=== PATIENT | male | born 1990 | race Caucasian/White ===

== ENCOUNTER 2024-01-11 09:36 | Outpatient (OUT) | payer MEDICAID, SELFPAY ==
--- NOTE | 2024-01-11 09:46 | XR_ITS ---
The [address] [address] Patient Name: DEBORA TRUJILLO MRN: [id number] date: 1990 Sex: M Assigned Patient Location: [facility] Current Patient Location: Accession/Order Number: [id number] Exam Date: 01/11/2024 09:55 Report Date: 01/12/2024 07:29 At the request of: HENRRY GONZALEZ Procedure: XR hand LT min 3V PROCEDURE: XR hand LT min 3V COMPARISON: None. HISTORY: Left Hand Pain FINDINGS: BONES:Complex nondisplaced fracture involving the head and neck of the fifth metacarpal. No dislocation. SOFT TISSUES:Negative. No visible soft tissue swelling. EFFUSION:None visible. OTHER: Call results initiated through operations XR/XR hand LT min 3V IMPRESSION: Complex nondisplaced fifth metacarpal head and neck fracture Electronically authenticated by: DIEGO JASSO Date: 01/12/2024 07:29
== END 2024-01-11 09:37 | disposition home or self-care (01) ==
LOC: RAD 09:42
PROVIDERS: Visit Provider Nurse Practitioner Primary Care
DX: M25.542 Pain in joints of left hand (principal); S62.397A Other fracture of fifth metacarpal bone, left hand, initial encounter for closed fracture
CPT/HCPCS: 73130

== ENCOUNTER 2024-01-12 11:39 | Emergency (ER) | payer MEDICAID, SELFPAY ==
[2024-01-12 11:42] VITALS: BP 147/99; PULSE 98; TEMP 36.7; O2SAT 97; BMI 48.7
--- NOTE | 2024-01-12 12:03 | ED.UPPEXIN1 ---
HPI HPI - Extremity Injury (Upper) General Chief Complaint: Extremity Injury, Upper Stated Complaint: UPPER EXTREMITY INJURY Time Seen by Provider: 01/12/24 11:41 Source: patient Mode of arrival: walk-in History of Present Illness HPI narrative: 33-year-old male presents for fracture of his left hand. 2 weeks ago he punched a hard object and hurt his hand. Yesterday he had an outpatient x-ray of the hand which showed a nondisplaced fifth metacarpal fracture. He comes in for splint placement. No new injury. He is right-handed. The pain is moderate. Related Data Allergies Allergy/AdvReac Type Severity Reaction Status Date / Time No Known Drug Allergies Allergy Verified 01/12/24 11:47 Opioid HPI Opioid Management Most Recent Pain and Opioid Data: No Data to Display Review of Systems ROS Narrative A ten point review of systems is negative except as noted above. Exam Narrative Exam Narrative: Nurses note and vital signs reviewed and patient is not hypoxic. General: The patient appears well and in no apparent distress. Patient is resting comfortably on cart. Skin: Warm, dry, no pallor noted. There is no rash noted. Head: Normocephalic, atraumatic Eye: Normal conjunctiva, no drainage Ears, Nose, Mouth, and Throat: oral mucosa is moist. Nares patent. Cardiovascular: Regular Rate and Rhythm Respiratory: Patient is in no distress, no accessory muscle use, lungs are clear to auscultation, no wheezing, rales or rhonchi Back: non-tender GI: Soft and nontender Musculoskeletal: The skin of his left hand is intact. He has some mild tenderness at the fifth metacarpal area. Fingers have good range of motion and there is no rotational deformity Neurological: A&O, normal speech Psychiatric: Cooperative Constitutional Vital Signs, click to edit/add: Last Vital Signs Temp 98.0 F 01/12/24 11:42 Pulse 98 H 01/12/24 11:42 Resp 18 01/12/24 11:42 BP 147/99 H 01/12/24 11:42 Pulse Ox 97 01/12/24 11:42 O2 Del Method Room Air 01/12/24 11:48 Course Vital Signs Vital signs: Vital Signs Temperature 98.0 F 01/12/24 11:42 Pulse Rate 98 H 01/12/24 11:42 Respiratory Rate 18 01/12/24 11:42 Blood Pressure 147/99 H 01/12/24 11:42 Pulse Oximetry 97 01/12/24 11:42 Oxygen Delivery Method Room Air 01/12/24 11:42 Temperature 98.0 F 01/12/24 11:42 Pulse Rate 98 H 01/12/24 11:42 Respiratory Rate 18 01/12/24 11:42 Blood Pressure 147/99 H 01/12/24 11:42 Pulse Oximetry 97 01/12/24 11:42 Oxygen Delivery Method Room Air 01/12/24 11:48 MDM - Extremity Injury (Upper) MDM Narrative Medical decision making narrative: I have applied an ulnar gutter splint to the left hand and wrist. He is neurovascularly intact. Sling also applied and application checked by me and found to be appropriate, he is neurovascular intact Differential Diagnosis Differential diagnosis: Likely other (Fracture, contusion) Discharge Plan Discharge Stand Alone Forms: Portal Instructions Chief Complaint: Extremity Injury, Upper Clinical Impression: Closed fracture of fifth metacarpal bone Patient Disposition: Home, Self-Care Time of Disposition Decision: 12:02 Condition: Good Mode of Transportation: Private Vehicle Print Language: Hungarian Instructions: Hand Fracture (ED) Additional Instructions: See Dr. Patel at noon on January 14 Referrals: Joe Patel MD [Physician] - 1 week KAREY HARRISON [Primary Care Provider] - 1 week
== END 2024-01-12 12:12 | disposition home or self-care (01) ==
PROVIDERS: Emergency Provider Emergency Medicine; PCP Family Medicine
DX: S62.307A Unspecified fracture of fifth metacarpal bone, left hand, initial encounter for closed fracture (principal); W22.8XXA Striking against or struck by other objects, initial encounter
CPT/HCPCS: 29125; 94667; 99283